=== PATIENT | male | born 1960 | race Caucasian/White ===

== ENCOUNTER 2018-09-20 12:31 | Emergency (ER) | payer BC, OTHER ==
--- NOTE | 2018-09-20 13:29 | RAD ---
Date of service: 09/20/2018 HISTORY: Chest pain COMPARISON: No prior. TECHNIQUE: Chest PA and lateral FINDINGS: LINES AND TUBES: None. LUNG AND PLEURA: The lungs are well inflated and clear. No pleural effusion or pneumothorax. HEART AND MEDIASTINUM: The heart is not enlarged. There are aortic arch atherosclerotic calcification present. The hilar and mediastinal contours are within normal limits. SKELETAL STRUCTURES: The bony structures are within normal limits for the patient's age. VISUALIZED UPPER ABDOMEN: Normal. OTHER FINDINGS: None. IMPRESSION: No active pulmonary disease.
[2018-09-20 13:42] LABS: BASO % 0.8 % (0.0-2.0); EOS # 0.1 K/uL (0.0-0.7); EOS % 2.5 % (0.0-4.0); HEMOGLOBIN 14.8 g/dL (12.0-18.0); LYMPH # 1.6 K/uL (1.0-4.3); LYMPH % 27.8 % (20.0-40.0); MEAN CELL VOLUME 91.6 fL (80.0-94.0); MEAN PLATELET VOLUME 8.2 fL (7.2-11.7); MONO # 0.8 K/uL (0.0-0.8); NEUT # 3.2 K/uL (1.8-7.0); NEUT % 54.9 % (50.0-75.0); NRBC % 0.1 % (0.0-2.0); RBC 4.62 Mil/uL (4.40-5.90); RED CELL DISTRIBUTION WIDTH 13.1 % (11.5-14.5); WHITE BLOOD COUNT 5.9 K/uL (4.8-10.8)
--- NOTE | 2018-09-20 13:48 | C.PDOC ---
History Of Present Illness 58 year old male presents to the emergency department with complaints of epigastric pain for the last several months. Patient states that he was evaluated by his PMD four months ago, who diagnosed him with GERD and gave him medications which did not provide relief of his symptoms. Patient states that for the last four days, the pain has worsened. Patient also states that three days ago, he was doing "some construction" and may have breathed in "powder" into his mouth, which has made the pain worse. He denies dyspnea, radiation of pain, or dizziness. Time Seen by Provider: 09/20/18 12:42 Chief Complaint (Nursing): Chest Pain History Per: Patient History/Exam Limitations: no limitations Onset/Duration Of Symptoms: Days (4) Current Symptoms Are (Timing): Worse Quality: "Pain" Associated Symptoms: denies: Dyspnea, Other (dizziness, radiation of pain) Past Medical History Reviewed: Historical Data, Nursing Documentation, Vital Signs Vital Signs: Last Vital Signs Temp 98.2 F 09/20/18 12:36 Pulse 68 09/20/18 12:36 Resp 20 09/20/18 12:36 BP 142/90 09/20/18 12:36 Pulse Ox 96 09/20/18 12:36 - Medical History PMH: HTN Surgical History: No Surg Hx Family History: States: No Known Family Hx - Social History Hx Tobacco Use: No Hx Alcohol Use: Yes Hx Substance Use: No - Immunization History Hx Tetanus Toxoid Vaccination: No Hx Influenza Vaccination: No Hx Pneumococcal Vaccination: No Review Of Systems Constitutional: Negative for: Fever, Chills Cardiovascular: Negative for: Chest Pain Respiratory: Negative for: Shortness of Breath Gastrointestinal: Positive for: Abdominal Pain. Negative for: Nausea, Vomiting, Diarrhea Neurological: Negative for: Dizziness Physical Exam - Physical Exam Appears: Non-toxic, No Acute Distress Skin: Normal Color, Warm, Dry Head: Atraumatic, Normacephalic Eye(s): bilateral: Normal Inspection, PERRL, EOMI Nose: Normal Oral Mucosa: Moist Throat: Normal, No Erythema Neck: Normal, Supple Chest: Symmetrical, No Tenderness Cardiovascular: Rhythm Regular, No Murmur Respiratory: No Rales, No Rhonchi, No Wheezing Gastrointestinal/Abdominal: Soft, Tenderness (minimal epigastric tenderness ), No Guarding, No Rebound Extremity: Normal ROM (all extremities) Neurological/Psych: Oriented x3, Normal Speech, Normal Cognition ED Course And Treatment - Laboratory Results Result Diagrams: 09/20/18 13:28 ECG: Interpreted By Me, Viewed By Me ECG Interpretation: Normal Interpretation Of ECG: Normal sinus rhythm at 73bpm, normal axis, normal intervals, no acute ST/T wave changes. O2 Sat by Pulse Oximetry: 96 (RA) Pulse Ox Interpretation: Normal - Radiology CXR: Read By Radiologist CXR Interpretation: Yes: No Acute Disease Medical Decision Making Medical Decision Making: Plan: Troponin CBC BMP CXR EKG Workup here in the ED was unremarkable. Results discussed with patient. Advised outpatient followup. Return to the ED for any new or worsening symptoms. Patient amenable to discharge home. Disposition - Disposition Disposition: HOME/ ROUTINE Disposition Time: 14:53 Condition: GOOD Additional Instructions: RANDELL SIERRA, thank you for letting us take care of you today. Your provider was Carol Hernandez MD and you were treated for CHEST PAIN. The emergency medical care you received today was directed at your acute symptoms. If you were prescribed any medication, please fill it and take as directed. It may take several days for your symptoms to resolve. Return to the Emergency Department if your symptoms worsen, do not improve, or if you have any other problems. Please contact your doctor or call one of the physicians/clinics you have been referred to that are listed on the Patient Visit Information form that is included in your discharge packet. Bring any paperwork you were given at discharge with you along with any medications you are taking to your follow up visit. Our treatment cannot replace ongoing medical care by a primary care provider outside of the emergency department. Thank you for allowing the [facility] team to be part of your care today. If you had an X-Ray or CT scan: A Radiologist will review the ED reading if any change in treatment is needed we will contact you. If you had a blood, urine, or wound culture: It will take several days for the results, if any change in treatment is needed we will contact you. If you had an STI test: It will take 48 hours for the results. Please call after 1 week if you have not heard back. Instructions: Chest Pain (DC) Forms: [employer] (Persian) - Clinical Impression Clinical Impression: Chest pain - Scribe Statement The provider has reviewed the documentation as recorded by the Scribe (Evan Jo vi) Provider Attestation: All medical record entries made by the Scribe were at my direction and personally dictated by me. I have reviewed the chart and agree that the record accurately reflects my personal performance of the history, physical exam, medical decision making, and the department course for this patient. I have also personally directed, reviewed, and agree with the discharge instructions and disposition.
[2018-09-20 14:46] VITALS: BP 156/95; PULSE 61; RESP 18; TEMP 97.9
[2018-09-20 20:54] VITALS: O2SAT 96
--- NOTE | 2018-09-22 13:30 | CARD ---
APPROVED REPORT Date of service: 09/20/2018 EKG Measurement Heart [id number] <Conclusion> Normal sinus rhythm Normal ECG
== END 2018-09-20 15:01 | disposition home or self-care (01) ==
LOC: C.ER 12:31
DX: R07.9 Chest pain, unspecified (principal); I10 Essential (primary) hypertension